=== PATIENT | male | born 1975 | race Caucasian/White ===

== ENCOUNTER 2018-10-05 06:35 | Inpatient (IN) | payer MEDICAID, OTHER ==
[2018-10-05 07:05] LABS: ADD MAN DIFF? NO
[2018-10-05 07:15] LABS: ABNORMAL IP MESSAGE 1; BASOPHILS % 0.2 % (0.0-2.0); EOSINOPHILS # 0.2 10^3/ul (0.0-0.5); EOSINOPHILS % 1.5 % (0.0-7.0); HEMATOCRIT 40.7 % (42.0-52.0); HEMOGLOBIN 12.9 g/dl (14.0-18.0); LYMPHOCYTES % 10.4 % (15.0-51.0); MEAN CORPUSCULAR HEMOGLOBIN 30.8 pg (29.0-33.0); MEAN CORPUSCULAR HGB CONC 31.7 g/dl (32.0-37.0); MEAN CORPUSCULAR VOLUME 97.1 fl (82.0-101.0); MEAN PLATELET VOLUME 10.5 fl (7.4-10.4); MONOCYTE # 1.4 10^3/ul (0.3-0.9); NEUTROPHIL # 6.2 10^3/ul (1.6-7.5); NEUTROPHILS % 62.3 % (39.0-77.0); PLATELET COUNT 166 10^3/UL (140-415); POSITIVE DIFF @See below; RED BLOOD COUNT 4.19 10^6/ul (4.70-6.10); RED CELL DISTRIBUTION WIDTH 12.3 % (11.5-14.5)
[2018-10-05 07:15] LABS: WHITE BLOOD COUNT 9.9 10^3/ul (4.8-10.8)
[2018-10-05] MEDS: SOD CHLORIDE 0.9% 1,000 ML IV ×2 (07:16→10:38)
[2018-10-05] MEDS: FLUMAZENIL 0.5 MG INJ IV (07:18)
[2018-10-05] MEDS: NALOXONE (0.4 MG/ML) INJ IV (07:19)
[2018-10-05 07:30] LABS: ALANINE AMINOTRANSFERASE 51 IU/L (13-69); ALBUMIN 3.8 g/dl (3.3-4.9); ALBUMIN/GLOBULIN RATIO 1.08; ALKALINE PHOSPHATASE 98 IU/L (42-121); ANION GAP 16 (5-13); ASPARTATE AMINO TRANSFERASE 61 IU/L (15-46); BILIRUBIN,INDIRECT 0.3 mg/dl (0-1.1); BILIRUBIN,TOTAL 0.3 mg/dl (0.2-1.3); BLOOD UREA NITROGEN 14 mg/dl (7-20); CARBON DIOXIDE 26 mmol/L (21-31); CHLORIDE 103 mmol/L (97-110); CREATININE 1.69 mg/dl (0.61-1.24); Estimated GFR 45 mL/min (>60); GLUCOSE 142 mg/dl (70-220); POTASSIUM 3.9 mmol/L (3.5-5.1); SODIUM 145 mmol/L (135-144); TOTAL PROTEIN 7.3 g/dl (6.1-8.1)
[2018-10-05 07:31] LABS: AMMONIA 26 umol/l (9-30)
[2018-10-05 07:34] LABS: INR 1.12; PROTIME 14.5 Sec (11.9-14.9); PT RATIO 1.1
[2018-10-05 07:35] LABS: PARTIAL THROMBOPLASTIN TIME 37.1 Sec (23.0-35.0)
[2018-10-05 07:42] LABS: TROPONIN-I 0.335 ng/ml (0.000-0.120)
[2018-10-05 07:49] LABS: ANISOCYTOSIS 1+ (0-0); BAND NEUTROPHILS #M 0.2 10^3/ul (0.0-0.6); BAND NEUTROPHILS % (M) 3 % (0-4); EOSINOPHILS % (M) 6 % (0-7); GIANT THROMBO% (M) 1 % (0-0); LYMPHOCYTES #M 1.3 10^3/ul (0.8-2.9); LYMPHOCYTES % (M) 14 % (15-51); MONOCYTE #M 0.5 10^3/ul (0.3-0.9); MONOCYTES % (M) 6 % (0-11); MYELOCYTES #M 0.4 10^3/ul (0.0-0.0); MYELOCYTES % (M) 5 % (0-0); PLATELET ESTIMATE NORMAL; POLYCHROMASIA 1+ (0-0); PROMYELOCYTES #M 0.2 10^3/ul (0-0); PROMYELOCYTES % (M) 3 % (0-0); REACTIVE LYMPHOCYTES% (M) 1 % (0-0); SEG NEUT #M 6.2 10^3/ul (1.6-7.5); SEGMENTED NEUTROPHILS (M) % 62 % (39-77); SMUDGE%M 1 % (0-0)
[2018-10-05] MEDS: SODIUM CHLORIDE 0.9% 1L BAG IV* (08:11)
[2018-10-05] MEDS: ENOXAPARIN 80 MG/0.8 ML SYG SC ×2 (08:12→21:33)
[2018-10-05] MEDS: NALOXONE 2 MG SYG IV (08:21)
[2018-10-05] MEDS: CEFEPIME 2GM/50 ML (PMX) 50 ML IVPB (08:21)
[2018-10-05 08:33] LABS: ADD UMIC YES; UR AMORPHOUS CRYSTAL FEW /HPF (NONE SEEN); UR ASCORBIC ACID NEGATIVE (NEGATIVE); UR BACTERIA FEW /HPF (NONE SEEN); UR BILIRUBIN (Dip) NEGATIVE (NEGATIVE); UR BLOOD (Dip) 1+ mg/dL (NEGATIVE); UR CLARITY SLIGHTLY CLOUDY (CLEAR); UR COLOR YELLOW (YELLOW); UR GLUCOSE (Dip) 1+ mg/dL (NEGATIVE); UR KETONES (Dip) NEGATIVE (NEGATIVE); UR LEUKOCYTE ESTERASE (Dip) NEGATIVE Leu/ul (NEGATIVE); UR NITRITE (Dip) NEGATIVE (NEGATIVE); UR RBC 5 /HPF (0-5); UR SPECIFIC GRAVITY (Dip) 1.009 (1.003-1.030); UR TOTAL PROTEIN (Dip) 2+ mg/dl (NEGATIVE); UR UROBILINOGEN (Dip) NEGATIVE (NEGATIVE); UR WBC 6 /HPF (0-5)
[2018-10-05] MEDS: VANCOMYCIN 1 GM (PMX) 250 ML IVPB (08:52)
[2018-10-05] MEDS ORDERED: ONDANSETRON 4 MG INJ IV (10:30)
[2018-10-05] MEDS ORDERED: ACETAMINOPHEN 325 MG TAB PO (10:30)
[2018-10-05 11:56] LABS: LACTIC ACID 0.9 mmol/L (0.5-2.0)
[2018-10-05] MEDS ORDERED: NITROGLYCERIN (SL) 0.4 MG TAB SL (12:00)
[2018-10-05] MEDS ORDERED: BISACODYL 10 MG SUPP PR (12:00)
[2018-10-05] MEDS ORDERED: VANCOMYCIN IV PER PHARMACY XX (12:00)
[2018-10-05] MEDS ORDERED: NACL 0.9% 3 ML SYG IV (12:00)
[2018-10-05] MEDS ORDERED: DOCUSATE SODIUM 100 MG CAP PO (12:00)
[2018-10-05] MEDS ORDERED: hydrALAzine 20 MG INJ IV (12:00)
[2018-10-05] MEDS: SOD CHLORIDE 0.45% 1,000 ML IV (13:22)
[2018-10-05] MEDS: PIPER-TAZO 3.375 GM IV (PMX) 100 ML IVPB ×2 (13:23→21:29)
[2018-10-05 13:27] LABS: VALPROATE 32 ug/ml (50-100)
[2018-10-05] MEDS: CHLORHEXIDINE GLUCONATE 15 ML UD CUP MM ×2 (13:48→23:46)
[2018-10-05 13:51] LABS: CREATINE KINASE 201 IU/L (23-200)
[2018-10-05 14:00] LABS: CK INDEX 7.9
[2018-10-05 17:30] LABS: LACTIC ACID 0.9 mmol/L (0.5-2.0)
[2018-10-05 17:31] LABS: CREATINE KINASE 313 IU/L (23-200)
[2018-10-05] MEDS: VANCOMYCIN 750 MG (PMX) 250 ML IVPB (17:41)
[2018-10-05 17:43] LABS: CK INDEX 7.5
[2018-10-05] MEDS ORDERED: NON-FORMULARY/PATIENT OWN MED (Amino Acids/Protein Hydrolys (Pro-Stat Liquid) 30 ML) GTB (21:00)
[2018-10-05] MEDS ORDERED: ATORVASTATIN 80 MG TAB PO (21:00)
[2018-10-05] MEDS ORDERED: HEPARIN 5,000 UNIT/0.5 ML VIAL SC (21:00)
[2018-10-05] MEDS: ATORVASTATIN 40 MG TAB GTB (21:30)
[2018-10-05] MEDS: VALPROIC ACID LIQUID CUP 250 MG/5 ML CUP GTB (21:32)
[2018-10-05] MEDS: METOPROLOL 25 MG TAB PO (21:32)
[2018-10-05 21:33] LABS: CREATINE KINASE 294 IU/L (23-200)
[2018-10-05 21:47] LABS: CK INDEX 7.4
[2018-10-05 23:16] LABS: CREATININE,URINE RANDOM 113.69 mg/dl (20-370)
[2018-10-05 23:27] LABS: SODIUM,URINE RANDOM 88 mmol/L (30-90)
[2018-10-05] MEDS: LORAZEPAM 2 MG INJ IV (23:46)
[2018-10-06] MEDS: SOD CHLORIDE 0.45% 1,000 ML IV ×3 (02:13→23:30)
[2018-10-06] MEDS: PIPER-TAZO 3.375 GM IV (PMX) 100 ML IVPB ×4 (02:16→17:09)
[2018-10-06 06:07] LABS: ADD MAN DIFF? NO
[2018-10-06 06:09] LABS: ABNORMAL IP MESSAGE 1; BASOPHIL # 0.1 10^3/ul (0.0-0.1); BASOPHILS % 0.5 % (0.0-2.0); EOSINOPHILS # 0.3 10^3/ul (0.0-0.5); EOSINOPHILS % 2.4 % (0.0-7.0); HEMATOCRIT 35.4 % (42.0-52.0); HEMOGLOBIN 11.5 g/dl (14.0-18.0); LYMPHOCYTES # 1.3 10^3/ul (0.8-2.9); LYMPHOCYTES % 10.6 % (15.0-51.0); MEAN CORPUSCULAR HEMOGLOBIN 30.9 pg (29.0-33.0); MEAN CORPUSCULAR HGB CONC 32.5 g/dl (32.0-37.0); MEAN CORPUSCULAR VOLUME 95.2 fl (82.0-101.0); MEAN PLATELET VOLUME 10.1 fl (7.4-10.4); MONOCYTE # 1.9 10^3/ul (0.3-0.9); MONOCYTES % 15.5 % (0.0-11.0); NEUTROPHIL # 8.5 10^3/ul (1.6-7.5); NEUTROPHILS % 69.1 % (39.0-77.0); PLATELET COUNT 152 10^3/UL (140-415); POSITIVE DIFF @See below; RED BLOOD COUNT 3.72 10^6/ul (4.70-6.10); RED CELL DISTRIBUTION WIDTH 12.2 % (11.5-14.5)
[2018-10-06 06:09] LABS: WHITE BLOOD COUNT 12.3 10^3/ul (4.8-10.8)
[2018-10-06] MEDS: VANCOMYCIN 750 MG (PMX) 250 ML IVPB ×2 (06:16→17:52)
[2018-10-06 06:34] LABS: CHOLESTEROL 61 mg/dl (100-200)
[2018-10-06 06:34] LABS: CHOL/HDL RATIO 3.2 RATIO; HDL CHOLESTEROL 19 mg/dl (27-67); LDL CHOLESTEROL,CALCULATED 16 mg/dl; TRIGLYCERIDES 129 mg/dl (0-149)
[2018-10-06 06:36] LABS: LACTIC ACID 1.1 mmol/L (0.5-2.0)
[2018-10-06 06:39] LABS: ANION GAP 7 (5-13); BLOOD UREA NITROGEN 10 mg/dl (7-20); CALCIUM 8.1 mg/dl (8.4-10.2); CARBON DIOXIDE 27 mmol/L (21-31); CHLORIDE 110 mmol/L (97-110); CREATINE KINASE 190 IU/L (23-200); CREATININE 0.77 mg/dl (0.61-1.24); Estimated GFR > 60 mL/min (>60); GLUCOSE 98 mg/dl (70-220); MAGNESIUM 1.7 mg/dl (1.7-2.5); PHOSPHORUS 4.3 mg/dl (2.5-4.9); POTASSIUM 3.7 mmol/L (3.5-5.1); SODIUM 144 mmol/L (135-144)
[2018-10-06 06:45] LABS: CK INDEX 5.4
[2018-10-06 07:03] LABS: THYROID STIMULATING HORMONE 0.766 MIU/L (0.465-4.680)
[2018-10-06 07:03] LABS: HEMOGLOBIN A1C 5.3 % (0-5.9)
[2018-10-06] MEDS: LORAZEPAM 2 MG INJ IV ×3 (07:18→21:35)
[2018-10-06] MEDS: VALPROIC ACID LIQUID CUP 250 MG/5 ML CUP GTB ×2 (08:09→21:16)
[2018-10-06] MEDS: FAMOTIDINE 20 MG INJ IV ×2 (08:09→21:18)
[2018-10-06] MEDS: MULTIVITAMINS/MINERALS TAB PO (08:09)
[2018-10-06] MEDS: LACTOBACILLUS RHAMNOSUS CAP PO (08:10)
[2018-10-06] MEDS: ZINC SULFATE 220 MG CAP GTB (08:10)
[2018-10-06] MEDS: METOPROLOL 25 MG TAB PO ×2 (08:10→21:21)
[2018-10-06] MEDS: ASCORBIC ACID 500 MG TAB GTB (08:10)
[2018-10-06] MEDS: ASPIRIN (EC) 325 MG TAB PO (08:10)
[2018-10-06] MEDS: ENOXAPARIN 80 MG/0.8 ML SYG SC (08:25)
[2018-10-06] MEDS ORDERED: NON-FORMULARY/PATIENT OWN MED (Cran/Vitc/Mannose/Inulin/Brom (Uti-Stat Liquid) 30 ML) GTB (09:00)
[2018-10-06] MEDS: GABAPENTIN 300 MG CAP GTB ×2 (12:45→21:17)
[2018-10-06] MEDS: CHLORHEXIDINE GLUCONATE 15 ML UD CUP MM (12:45)
[2018-10-06] MEDS ORDERED: RISPERIDONE 1 MG TAB GTB (13:00)
[2018-10-06] MEDS: RISPERIDONE 2 MG TAB GTB (13:45)
[2018-10-06] MEDS: ATORVASTATIN 40 MG TAB GTB (21:17)
[2018-10-07] MEDS: PIPER-TAZO 3.375 GM IV (PMX) 100 ML IVPB ×2 (00:35→05:24)
[2018-10-07] MEDS: CHLORHEXIDINE GLUCONATE 15 ML UD CUP MM ×3 (00:35→23:52)
[2018-10-07] MEDS: LORAZEPAM 2 MG INJ IV ×5 (03:26→22:35)
[2018-10-07] MEDS: HALOPERIDOL 5 MG INJ IM (04:08)
[2018-10-07 06:12] LABS: WHITE BLOOD COUNT 11.3 10^3/ul (4.8-10.8)
[2018-10-07 06:12] LABS: ABNORMAL IP MESSAGE 1; HEMATOCRIT 32.1 % (42.0-52.0); HEMOGLOBIN 11.1 g/dl (14.0-18.0); MEAN CORPUSCULAR HEMOGLOBIN 31.7 pg (29.0-33.0); MEAN CORPUSCULAR HGB CONC 34.6 g/dl (32.0-37.0); MEAN CORPUSCULAR VOLUME 91.7 fl (82.0-101.0); MEAN PLATELET VOLUME 9.8 fl (7.4-10.4); PLATELET COUNT 171 10^3/UL (140-415); POSITIVE DIFF @See below
[2018-10-07 06:17] LABS: ADD MAN DIFF? YES
[2018-10-07 06:30] LABS: ANION GAP 6 (5-13); BLOOD UREA NITROGEN 5 mg/dl (7-20); CARBON DIOXIDE 31 mmol/L (21-31); CHLORIDE 104 mmol/L (97-110); CREATININE 0.55 mg/dl (0.61-1.24); Estimated GFR > 60 mL/min (>60); GLUCOSE 82 mg/dl (70-220); POTASSIUM 3.1 mmol/L (3.5-5.1); SODIUM 141 mmol/L (135-144)
[2018-10-07] MEDS: VANCOMYCIN 750 MG (PMX) 250 ML IVPB ×2 (08:59→17:49)
[2018-10-07] MEDS: VALPROIC ACID LIQUID CUP 250 MG/5 ML CUP GTB ×2 (08:59→20:51)
[2018-10-07] MEDS: RISPERIDONE 2 MG TAB GTB (09:00)
[2018-10-07] MEDS: FAMOTIDINE 20 MG INJ IV ×2 (09:00→20:47)
[2018-10-07] MEDS: GABAPENTIN 300 MG CAP GTB ×2 (09:00→20:51)
[2018-10-07] MEDS: METOPROLOL 25 MG TAB PO ×2 (09:00→20:52)
[2018-10-07] MEDS: MULTIVITAMINS/MINERALS TAB PO (09:00)
[2018-10-07] MEDS: ASCORBIC ACID 500 MG TAB GTB (09:00)
[2018-10-07] MEDS: LACTOBACILLUS RHAMNOSUS CAP PO (09:06)
[2018-10-07] MEDS: ASPIRIN (EC) 325 MG TAB PO (09:06)
[2018-10-07] MEDS: ZINC SULFATE 220 MG CAP GTB (09:06)
[2018-10-07] MEDS: ENOXAPARIN 80 MG/0.8 ML SYG SC (09:07)
[2018-10-07 09:29] LABS: BAND NEUTROPHILS #M 0.9 10^3/ul (0.0-0.6); BAND NEUTROPHILS % (M) 8 % (0-4); BURR CELLS 2+ (0-0); EOSINOPHILS % (M) 4 % (0-7); LYMPHOCYTES #M 0.6 10^3/ul (0.8-2.9); LYMPHOCYTES % (M) 6 % (15-51); MONOCYTES % (M) 9 % (0-11); MYELOCYTES #M 0.2 10^3/ul (0.0-0.0); MYELOCYTES % (M) 2 % (0-0); PLATELET ESTIMATE NORMAL; POIKILOCYTOSIS 1+ (0-0); REACTIVE LYMPHOCYTES #M 0.2 10^3/ul (0.0-0.0); REACTIVE LYMPHOCYTES% (M) 2 % (0-0); SEG NEUT #M 7.9 10^3/ul (1.6-7.5); SEGMENTED NEUTROPHILS (M) % 69 % (39-77); SMUDGE%M 4 % (0-0); TARGET CELLS 1+ (0-0)
[2018-10-07] MEDS: POTASSIUM CHLORIDE 100 ML IVPB ×2 (11:24→13:29)
[2018-10-07] MEDS: HALOPERIDOL 5 MG INJ IV ×2 (11:24→20:47)
[2018-10-07] MEDS: MUPIROCIN 2% 22 GM OINT TOP ×2 (12:52→20:52)
[2018-10-07 16:37] LABS: CREATINE KINASE 110 IU/L (23-200)
[2018-10-07 16:47] LABS: CK INDEX 1.2; CK-MB 1.31 ng/ml (0.0-2.4)
[2018-10-07] MEDS: SOD CHLORIDE 0.45% 1,000 ML IV (17:00)
[2018-10-07] MEDS: ATORVASTATIN 40 MG TAB GTB (20:51)
[2018-10-07] MEDS: ALBUTEROL/IPRATROPIUM (NEB) 3 ML AMP HHN (22:12)
[2018-10-08] MEDS: VANCOMYCIN 750 MG (PMX) 250 ML IVPB ×3 (00:51→17:53)
[2018-10-08] MEDS: LORAZEPAM 2 MG INJ IV (04:21)
[2018-10-08] MEDS: ALBUTEROL/IPRATROPIUM (NEB) 3 ML AMP HHN (05:07)
[2018-10-08 06:18] LABS: ADD MAN DIFF? NO
[2018-10-08] MEDS: SOD CHLORIDE 0.45% 1,000 ML IV (06:20)
[2018-10-08 06:22] LABS: WHITE BLOOD COUNT 8.3 10^3/ul (4.8-10.8)
[2018-10-08 06:23] LABS: BASOPHIL # 0.1 10^3/ul (0.0-0.1); BASOPHILS % 0.8 % (0.0-2.0); EOSINOPHILS # 0.5 10^3/ul (0.0-0.5); EOSINOPHILS % 5.4 % (0.0-7.0); HEMATOCRIT 33.8 % (42.0-52.0); HEMOGLOBIN 11.5 g/dl (14.0-18.0); LYMPHOCYTES % 24.4 % (15.0-51.0); MEAN CORPUSCULAR HEMOGLOBIN 30.9 pg (29.0-33.0); MEAN CORPUSCULAR VOLUME 90.9 fl (82.0-101.0); MEAN PLATELET VOLUME 9.9 fl (7.4-10.4); MONOCYTE # 1.1 10^3/ul (0.3-0.9); MONOCYTES % 13.4 % (0.0-11.0); NEUTROPHIL # 4.4 10^3/ul (1.6-7.5); NEUTROPHILS % 53.5 % (39.0-77.0); PLATELET COUNT 194 10^3/UL (140-415); RED BLOOD COUNT 3.72 10^6/ul (4.70-6.10); RED CELL DISTRIBUTION WIDTH 11.9 % (11.5-14.5)
[2018-10-08 07:03] LABS: ANION GAP 9 (5-13); BLOOD UREA NITROGEN 3 mg/dl (7-20); CALCIUM 8.2 mg/dl (8.4-10.2); CARBON DIOXIDE 28 mmol/L (21-31); CHLORIDE 106 mmol/L (97-110); CREATININE 0.55 mg/dl (0.61-1.24); Estimated GFR > 60 mL/min (>60); GLUCOSE 73 mg/dl (70-220); POTASSIUM 3.3 mmol/L (3.5-5.1); SODIUM 143 mmol/L (135-144)
[2018-10-08] MEDS: HALOPERIDOL 5 MG INJ IV ×2 (07:26→08:51)
[2018-10-08] MEDS ORDERED: HALOPERIDOL 5 MG INJ IV (08:30)
[2018-10-08] MEDS: VALPROIC ACID LIQUID CUP 250 MG/5 ML CUP GTB ×2 (08:46→20:28)
[2018-10-08] MEDS: POTASSIUM CHLORIDE 20 MEQ POWDER FOR ORAL SOLN GTB (08:47)
[2018-10-08] MEDS: ZINC SULFATE 220 MG CAP GTB (08:47)
[2018-10-08] MEDS: ASPIRIN (EC) 325 MG TAB PO (08:48)
[2018-10-08] MEDS: RISPERIDONE 2 MG TAB GTB (08:48)
[2018-10-08] MEDS: LACTOBACILLUS RHAMNOSUS CAP PO (08:48)
[2018-10-08] MEDS: MULTIVITAMINS/MINERALS TAB PO (08:50)
[2018-10-08] MEDS: GABAPENTIN 300 MG CAP GTB ×2 (08:50→20:29)
[2018-10-08] MEDS: ASCORBIC ACID 500 MG TAB GTB (08:50)
[2018-10-08] MEDS: FAMOTIDINE 20 MG INJ IV ×2 (08:51→20:29)
[2018-10-08] MEDS: METOPROLOL 25 MG TAB PO ×2 (08:51→20:28)
[2018-10-08] MEDS: ENOXAPARIN 80 MG/0.8 ML SYG SC (09:18)
[2018-10-08] MEDS: MUPIROCIN 2% 22 GM OINT TOP ×2 (09:19→20:29)
[2018-10-08] MEDS: CHLORHEXIDINE GLUCONATE 15 ML UD CUP MM (12:17)
[2018-10-08 15:15] LABS: D-DIMER 931.28 ng/ml (<460)
[2018-10-08 15:50] LABS: HIV 1&2 ANTIBODY NEGATIVE (NEGATIVE)
[2018-10-08 16:25] LABS: ERYTHROCYTE SEDIMENTATION RATE 57 mm/Hr (0-15)
[2018-10-08] MEDS: DIPHENHYDRAMINE 50 MG INJ IV (17:53)
[2018-10-08] MEDS: ATORVASTATIN 40 MG TAB GTB (20:27)
[2018-10-08] MEDS: QUETIAPINE 25 MG TAB GTB (20:28)
[2018-10-09] MEDS: CHLORHEXIDINE GLUCONATE 15 ML UD CUP MM ×2 (00:50→10:03)
[2018-10-09] MEDS: VANCOMYCIN 750 MG (PMX) 250 ML IVPB (00:50)
[2018-10-09] MEDS: DIPHENHYDRAMINE 50 MG INJ IV ×3 (00:50→17:46)
[2018-10-09 01:53] LABS: VANCOMYCIN,TROUGH 9.5 ug/ml (10.0-20.0)
[2018-10-09] MEDS: QUETIAPINE 25 MG TAB GTB ×3 (04:28→22:28)
[2018-10-09 07:52] LABS: ADD MAN DIFF? NO
[2018-10-09 07:54] LABS: BASOPHIL # 0.1 10^3/ul (0.0-0.1); BASOPHILS % 0.7 % (0.0-2.0); EOSINOPHILS # 0.3 10^3/ul (0.0-0.5); EOSINOPHILS % 4.3 % (0.0-7.0); HEMATOCRIT 36.4 % (42.0-52.0); HEMOGLOBIN 12.4 g/dl (14.0-18.0); LYMPHOCYTES # 1.8 10^3/ul (0.8-2.9); LYMPHOCYTES % 24.9 % (15.0-51.0); MEAN CORPUSCULAR HEMOGLOBIN 30.8 pg (29.0-33.0); MEAN CORPUSCULAR HGB CONC 34.1 g/dl (32.0-37.0); MEAN CORPUSCULAR VOLUME 90.5 fl (82.0-101.0); MEAN PLATELET VOLUME 9.3 fl (7.4-10.4); MONOCYTE # 0.9 10^3/ul (0.3-0.9); NEUTROPHILS % 56.4 % (39.0-77.0); PLATELET COUNT 247 10^3/UL (140-415); RED BLOOD COUNT 4.02 10^6/ul (4.70-6.10)
[2018-10-09 07:54] LABS: WHITE BLOOD COUNT 7.2 10^3/ul (4.8-10.8)
[2018-10-09 08:25] LABS: ANION GAP 6 (5-13); CALCIUM 8.7 mg/dl (8.4-10.2); CARBON DIOXIDE 31 mmol/L (21-31); CHLORIDE 107 mmol/L (97-110); CREATININE 0.57 mg/dl (0.61-1.24); Estimated GFR > 60 mL/min (>60); GLUCOSE 93 mg/dl (70-220); POTASSIUM 3.5 mmol/L (3.5-5.1); SODIUM 144 mmol/L (135-144)
[2018-10-09 08:26] LABS: BLOOD UREA NITROGEN < 2 mg/dl (7-20)
[2018-10-09] MEDS: MULTIVITAMINS/MINERALS TAB PO (10:01)
[2018-10-09] MEDS: ZINC SULFATE 220 MG CAP GTB (10:01)
[2018-10-09] MEDS: FAMOTIDINE 20 MG TAB GTB ×2 (10:02→22:19)
[2018-10-09] MEDS: HYDROCODONE/APAP (5/325) TAB PO ×2 (10:02→17:46)
[2018-10-09] MEDS: LACTOBACILLUS RHAMNOSUS CAP PO (10:02)
[2018-10-09] MEDS: ASCORBIC ACID 500 MG TAB GTB (10:02)
[2018-10-09] MEDS: ASPIRIN (EC) 325 MG TAB PO (10:02)
[2018-10-09] MEDS: RISPERIDONE 2 MG TAB GTB (10:02)
[2018-10-09] MEDS: GABAPENTIN 300 MG CAP GTB ×2 (10:02→21:00)
[2018-10-09] MEDS: ONDANSETRON 4 MG INJ IV ×2 (10:02→17:46)
[2018-10-09] MEDS: MUPIROCIN 2% 22 GM OINT TOP ×2 (10:03→21:00)
[2018-10-09] MEDS: METOPROLOL 25 MG TAB PO ×2 (10:03→22:19)
[2018-10-09] MEDS: VALPROIC ACID LIQUID CUP 250 MG/5 ML CUP GTB ×2 (10:03→22:17)
[2018-10-09] MEDS: ENOXAPARIN 80 MG/0.8 ML SYG SC (10:05)
[2018-10-09] MEDS: VANCOMYCIN 1 GM 250 ML IVPB ×2 (10:09→17:25)
[2018-10-09 13:08] LABS: TROPONIN-I 0.557 ng/ml (0.000-0.120)
[2018-10-09] MEDS: LORAZEPAM 2 MG INJ IV (13:30)
[2018-10-09] MEDS: IOHEXOL 300MG/ML 150 ML BTL (14:07)
[2018-10-09] MEDS: IOHEXOL 100 ML (14:07)
[2018-10-09] MEDS: SOD CHLORIDE 0.9% 100 ML (14:07)
[2018-10-09 16:25] LABS: RAPID PLASMA REAGIN NONREACTIVE (NR)
[2018-10-09] MEDS: MAGNESIUM HYDROXIDE 30ML CUP PO (17:47)
[2018-10-09] MEDS: ATORVASTATIN 40 MG TAB GTB (22:18)
[2018-10-10] MEDS: CHLORHEXIDINE GLUCONATE 15 ML UD CUP MM ×2 (04:01→12:21)
[2018-10-10] MEDS: VANCOMYCIN 1 GM 250 ML IVPB ×3 (04:02→17:35)
[2018-10-10] MEDS: DIPHENHYDRAMINE 50 MG INJ IV ×3 (04:57→19:55)
[2018-10-10 05:45] LABS: ADD MAN DIFF? NO
[2018-10-10 06:00] LABS: BASOPHIL # 0.1 10^3/ul (0.0-0.1); BASOPHILS % 0.8 % (0.0-2.0); EOSINOPHILS # 0.6 10^3/ul (0.0-0.5); EOSINOPHILS % 7.4 % (0.0-7.0); HEMATOCRIT 35.9 % (42.0-52.0); LYMPHOCYTES # 2.3 10^3/ul (0.8-2.9); LYMPHOCYTES % 30.1 % (15.0-51.0); MEAN CORPUSCULAR HEMOGLOBIN 30.8 pg (29.0-33.0); MEAN CORPUSCULAR HGB CONC 33.4 g/dl (32.0-37.0); MEAN CORPUSCULAR VOLUME 92.3 fl (82.0-101.0); MEAN PLATELET VOLUME 9.3 fl (7.4-10.4); MONOCYTE # 0.9 10^3/ul (0.3-0.9); NEUTROPHIL # 3.6 10^3/ul (1.6-7.5); NEUTROPHILS % 47.6 % (39.0-77.0); PLATELET COUNT 245 10^3/UL (140-415); RED BLOOD COUNT 3.89 10^6/ul (4.70-6.10); RED CELL DISTRIBUTION WIDTH 12.4 % (11.5-14.5)
[2018-10-10 06:00] LABS: WHITE BLOOD COUNT 7.6 10^3/ul (4.8-10.8)
[2018-10-10 06:35] LABS: ANION GAP 7 (5-13); BLOOD UREA NITROGEN 5 mg/dl (7-20); CALCIUM 8.4 mg/dl (8.4-10.2); CARBON DIOXIDE 32 mmol/L (21-31); CHLORIDE 106 mmol/L (97-110); CREATININE 0.65 mg/dl (0.61-1.24); Estimated GFR > 60 mL/min (>60); GLUCOSE 103 mg/dl (70-220); POTASSIUM 3.4 mmol/L (3.5-5.1); SODIUM 145 mmol/L (135-144)
[2018-10-10] MEDS: FAMOTIDINE 20 MG TAB GTB ×2 (08:35→20:20)
[2018-10-10] MEDS: MULTIVITAMINS/MINERALS TAB PO (08:35)
[2018-10-10] MEDS: RISPERIDONE 2 MG TAB GTB (08:35)
[2018-10-10] MEDS: VALPROIC ACID LIQUID CUP 250 MG/5 ML CUP GTB ×2 (08:36→20:19)
[2018-10-10] MEDS: LACTOBACILLUS RHAMNOSUS CAP PO (08:36)
[2018-10-10] MEDS: ZINC SULFATE 220 MG CAP GTB (08:36)
[2018-10-10] MEDS: ASCORBIC ACID 500 MG TAB GTB (08:36)
[2018-10-10] MEDS: ASPIRIN (EC) 325 MG TAB PO (08:36)
[2018-10-10] MEDS: GABAPENTIN 300 MG CAP GTB ×2 (08:36→20:19)
[2018-10-10] MEDS: POTASSIUM CHLORIDE 20 MEQ POWDER FOR ORAL SOLN GTB ×2 (08:37→15:35)
[2018-10-10] MEDS: MUPIROCIN 2% 22 GM OINT TOP ×2 (08:37→20:21)
[2018-10-10] MEDS: HYDROCODONE/APAP (5/325) TAB PO (08:38)
[2018-10-10] MEDS: ENOXAPARIN 80 MG/0.8 ML SYG SC (08:55)
[2018-10-10] MEDS: METOPROLOL 25 MG TAB PO ×2 (08:56→20:20)
[2018-10-10 16:26] LABS: CREATININE, RANDOM URINE 109 mg/dL (20-320); MICROALBUMIN 7.2 mg/dL; MICROALBUMIN/CREATININE RATIO 66 (<30)
[2018-10-10 16:44] LABS: ADD UMIC YES; UR ASCORBIC ACID 40 mg/dL (NEGATIVE); UR BACTERIA FEW /HPF (NONE SEEN); UR BILIRUBIN (Dip) NEGATIVE (NEGATIVE); UR BLOOD (Dip) 3+ mg/dL (NEGATIVE); UR CLARITY CLOUDY (CLEAR); UR COLOR AMBER (YELLOW); UR GLUCOSE (Dip) NEGATIVE (NEGATIVE); UR KETONES (Dip) NEGATIVE (NEGATIVE); UR LEUKOCYTE ESTERASE (Dip) NEGATIVE Leu/ul (NEGATIVE); UR NITRITE (Dip) NEGATIVE (NEGATIVE); UR RBC > 182 /HPF (0-5); UR SPECIFIC GRAVITY (Dip) 1.025 (1.003-1.030); UR TOTAL PROTEIN (Dip) 2+ mg/dl (NEGATIVE); UR UROBILINOGEN (Dip) NEGATIVE (NEGATIVE); UR WBC 83 /HPF (0-5)
[2018-10-10 17:09] LABS: VANCOMYCIN,TROUGH 15.8 ug/ml (10.0-20.0)
[2018-10-10 18:46] LABS: HOMOCYSTEINE - CARDIOVASCULAR 4.6 umol/L (<11.4)
[2018-10-10] MEDS: LORAZEPAM 2 MG INJ IV (20:07)
[2018-10-10] MEDS: ATORVASTATIN 40 MG TAB GTB (20:19)
[2018-10-11] MEDS: HYDROCODONE/APAP (5/325) TAB PO (00:29)
[2018-10-11] MEDS: VANCOMYCIN 1 GM 250 ML IVPB ×3 (00:31→16:34)
[2018-10-11] MEDS: CHLORHEXIDINE GLUCONATE 15 ML UD CUP MM ×2 (00:32→12:30)
[2018-10-11] MEDS: QUETIAPINE 25 MG TAB GTB ×2 (01:50→23:15)
[2018-10-11 06:12] LABS: ADD MAN DIFF? NO
[2018-10-11 06:23] LABS: WHITE BLOOD COUNT 7.1 10^3/ul (4.8-10.8)
[2018-10-11 06:23] LABS: BASOPHIL # 0.1 10^3/ul (0.0-0.1); BASOPHILS % 0.8 % (0.0-2.0); EOSINOPHILS # 0.5 10^3/ul (0.0-0.5); EOSINOPHILS % 6.6 % (0.0-7.0); HEMOGLOBIN 11.7 g/dl (14.0-18.0); LYMPHOCYTES # 1.6 10^3/ul (0.8-2.9); LYMPHOCYTES % 22.9 % (15.0-51.0); MEAN CORPUSCULAR HEMOGLOBIN 31.5 pg (29.0-33.0); MEAN CORPUSCULAR HGB CONC 33.4 g/dl (32.0-37.0); MEAN CORPUSCULAR VOLUME 94.3 fl (82.0-101.0); MEAN PLATELET VOLUME 9.2 fl (7.4-10.4); MONOCYTE # 0.8 10^3/ul (0.3-0.9); MONOCYTES % 11.7 % (0.0-11.0); NEUTROPHILS % 56.2 % (39.0-77.0); PLATELET COUNT 245 10^3/UL (140-415); RED BLOOD COUNT 3.71 10^6/ul (4.70-6.10); RED CELL DISTRIBUTION WIDTH 12.3 % (11.5-14.5)
[2018-10-11] MEDS: DIPHENHYDRAMINE 50 MG INJ IV (06:35)
[2018-10-11 06:43] LABS: ANION GAP 4 (5-13); BLOOD UREA NITROGEN 5 mg/dl (7-20); CALCIUM 8.4 mg/dl (8.4-10.2); CARBON DIOXIDE 35 mmol/L (21-31); CHLORIDE 106 mmol/L (97-110); CREATININE 0.62 mg/dl (0.61-1.24); Estimated GFR > 60 mL/min (>60); GLUCOSE 82 mg/dl (70-220); POTASSIUM 3.9 mmol/L (3.5-5.1); SODIUM 145 mmol/L (135-144)
[2018-10-11 06:48] LABS: PHOSPHORUS 5.2 mg/dl (2.5-4.9)
[2018-10-11 06:48] LABS: MAGNESIUM 2.1 mg/dl (1.7-2.5)
[2018-10-11] MEDS: HALOPERIDOL 5 MG INJ IM (07:05)
[2018-10-11] MEDS: GABAPENTIN 300 MG CAP GTB ×2 (09:06→23:14)
[2018-10-11] MEDS: VALPROIC ACID LIQUID CUP 250 MG/5 ML CUP GTB ×2 (09:06→23:12)
[2018-10-11] MEDS: RISPERIDONE 2 MG TAB GTB (09:07)
[2018-10-11] MEDS: ASCORBIC ACID 500 MG TAB GTB (09:07)
[2018-10-11] MEDS: ZINC SULFATE 220 MG CAP GTB (09:07)
[2018-10-11] MEDS: LACTOBACILLUS RHAMNOSUS CAP PO (09:07)
[2018-10-11] MEDS: LORAZEPAM 2 MG INJ IV (09:07)
[2018-10-11] MEDS: METOPROLOL 25 MG TAB PO ×2 (09:07→21:00)
[2018-10-11] MEDS: MULTIVITAMINS/MINERALS TAB PO (09:07)
[2018-10-11] MEDS: FAMOTIDINE 20 MG TAB GTB ×2 (09:07→21:00)
[2018-10-11] MEDS: ASPIRIN (EC) 325 MG TAB PO (09:08)
[2018-10-11] MEDS: MUPIROCIN 2% 22 GM OINT TOP ×2 (09:09→21:00)
[2018-10-11] MEDS: ENOXAPARIN 80 MG/0.8 ML SYG SC (09:28)
[2018-10-11 15:56] LABS: FACTOR VIII ACTIVITY 116 % normal (50-180)
[2018-10-11 19:06] LABS: ANTI-THROMBIN III 21 mg/dL (19-30)
[2018-10-11] MEDS: ATORVASTATIN 40 MG TAB GTB (23:13)
[2018-10-12] MEDS: DIPHENHYDRAMINE 50 MG INJ IV ×2 (01:22→10:17)
[2018-10-12] MEDS: VANCOMYCIN 1 GM 250 ML IVPB ×2 (01:22→09:02)
[2018-10-12 06:07] LABS: ADD MAN DIFF? NO
[2018-10-12 06:16] LABS: WHITE BLOOD COUNT 12.8 10^3/ul (4.8-10.8)
[2018-10-12 06:16] LABS: BASOPHIL # 0.1 10^3/ul (0.0-0.1); BASOPHILS % 0.5 % (0.0-2.0); EOSINOPHILS # 0.3 10^3/ul (0.0-0.5); EOSINOPHILS % 2.4 % (0.0-7.0); HEMATOCRIT 38.8 % (42.0-52.0); HEMOGLOBIN 12.8 g/dl (14.0-18.0); LYMPHOCYTES # 1.5 10^3/ul (0.8-2.9); LYMPHOCYTES % 11.5 % (15.0-51.0); MEAN CORPUSCULAR HEMOGLOBIN 31.1 pg (29.0-33.0); MEAN CORPUSCULAR VOLUME 94.2 fl (82.0-101.0); MEAN PLATELET VOLUME 9.1 fl (7.4-10.4); MONOCYTE # 0.9 10^3/ul (0.3-0.9); MONOCYTES % 7.3 % (0.0-11.0); NEUTROPHIL # 9.8 10^3/ul (1.6-7.5); NEUTROPHILS % 76.8 % (39.0-77.0); PLATELET COUNT 257 10^3/UL (140-415); RED BLOOD COUNT 4.12 10^6/ul (4.70-6.10); RED CELL DISTRIBUTION WIDTH 12.7 % (11.5-14.5)
[2018-10-12 06:42] LABS: ANION GAP 7 (5-13); BLOOD UREA NITROGEN 5 mg/dl (7-20); CALCIUM 8.8 mg/dl (8.4-10.2); CARBON DIOXIDE 33 mmol/L (21-31); CHLORIDE 106 mmol/L (97-110); CREATININE 0.67 mg/dl (0.61-1.24); Estimated GFR > 60 mL/min (>60); GLUCOSE 83 mg/dl (70-220); POTASSIUM 3.9 mmol/L (3.5-5.1); SODIUM 146 mmol/L (135-144)
[2018-10-12] MEDS: ENOXAPARIN 80 MG/0.8 ML SYG SC (09:00)
[2018-10-12] MEDS: ASPIRIN (EC) 325 MG TAB PO (09:00)
[2018-10-12] MEDS: MULTIVITAMINS/MINERALS TAB PO (09:00)
[2018-10-12] MEDS: VALPROIC ACID LIQUID CUP 250 MG/5 ML CUP GTB ×2 (09:04→20:34)
[2018-10-12] MEDS: LACTOBACILLUS RHAMNOSUS CAP PO (09:05)
[2018-10-12] MEDS: ZINC SULFATE 220 MG CAP GTB (09:05)
[2018-10-12] MEDS: GABAPENTIN 300 MG CAP GTB ×2 (09:05→20:34)
[2018-10-12] MEDS: RISPERIDONE 2 MG TAB GTB (09:06)
[2018-10-12] MEDS: FAMOTIDINE 20 MG TAB GTB ×2 (09:06→20:34)
[2018-10-12] MEDS: ASCORBIC ACID 500 MG TAB GTB (09:06)
[2018-10-12] MEDS: METOPROLOL 25 MG TAB PO ×2 (09:06→20:34)
[2018-10-12] MEDS: MUPIROCIN 2% 22 GM OINT TOP ×2 (09:07→20:35)
[2018-10-12] MEDS: ACETAMINOPHEN 325 MG TAB PO (10:18)
[2018-10-12] MEDS: CHLORHEXIDINE GLUCONATE 15 ML UD CUP MM ×2 (12:23)
[2018-10-12] MEDS ORDERED: MIDAZOLAM 1 MG/ML 2 ML INJ (13:05)
[2018-10-12] MEDS ORDERED: FENTAnyl 50 MCG/ML VIAL (13:05)
[2018-10-12 16:56] LABS: VANCOMYCIN,TROUGH 21.6 ug/ml (10.0-20.0)
[2018-10-12] MEDS: ATORVASTATIN 40 MG TAB GTB (20:33)
[2018-10-12] MEDS: QUETIAPINE 25 MG TAB GTB (20:54)
[2018-10-12] MEDS ORDERED: VANCOMYCIN 750 MG (PMX) 250 ML IVPB (23:00)
[2018-10-12] MEDS: VANCOMYCIN 750 MG (PMX) 250 ML IVPB (23:24)
[2018-10-13] MEDS: CHLORHEXIDINE GLUCONATE 15 ML UD CUP MM ×2 (00:10→11:47)
[2018-10-13] MEDS: HYDROCODONE/APAP (5/325) TAB PO (03:28)
[2018-10-13] MEDS: VANCOMYCIN 750 MG (PMX) 250 ML IVPB ×2 (06:05→15:23)
[2018-10-13 06:24] LABS: ANION GAP 6 (5-13); BLOOD UREA NITROGEN 9 mg/dl (7-20); CALCIUM 8.7 mg/dl (8.4-10.2); CARBON DIOXIDE 30 mmol/L (21-31); CHLORIDE 106 mmol/L (97-110); CREATININE 0.61 mg/dl (0.61-1.24); Estimated GFR > 60 mL/min (>60); GLUCOSE 112 mg/dl (70-220); MAGNESIUM 2.1 mg/dl (1.7-2.5); PHOSPHORUS 5.8 mg/dl (2.5-4.9); POTASSIUM 3.9 mmol/L (3.5-5.1); SODIUM 142 mmol/L (135-144)
[2018-10-13] MEDS: LACTOBACILLUS RHAMNOSUS CAP PO (08:44)
[2018-10-13] MEDS: VALPROIC ACID LIQUID CUP 250 MG/5 ML CUP GTB ×2 (08:44→20:26)
[2018-10-13] MEDS: GABAPENTIN 300 MG CAP GTB ×2 (08:44→20:27)
[2018-10-13] MEDS: ZINC SULFATE 220 MG CAP GTB (08:44)
[2018-10-13] MEDS: ASCORBIC ACID 500 MG TAB GTB (08:44)
[2018-10-13] MEDS: RISPERIDONE 2 MG TAB GTB (08:45)
[2018-10-13] MEDS: ASPIRIN (EC) 325 MG TAB PO (08:45)
[2018-10-13] MEDS: METOPROLOL 25 MG TAB PO ×2 (08:45→20:28)
[2018-10-13] MEDS: MUPIROCIN 2% 22 GM OINT TOP ×2 (08:46→20:28)
[2018-10-13] MEDS: ENOXAPARIN 80 MG/0.8 ML SYG SC (08:52)
[2018-10-13 10:50] LABS: AADO2 Arterial 61.4 mmHg (7.0-24.0); Allen Test ACCEPTAB; Arterial Base Excess 2.8 mmol/L (-3.0-3); Arterial Blood Gas Oxygen Sat 97.4 mmHG (95.0-98.0); Arterial COHb 0.3 % (0.0-3.0); Arterial Fraction of Oxyhgb 96.8 % (93.0-99.0); Arterial HCO3 27.7 mmol/L (22.0-26.0); Arterial MetHb 0.3 % (0.0-1.5); Arterial pCO2 43.6 mmhg (35-45); Blood Gas PS 10; MODE VENT - CPAP; Site Right Radial
[2018-10-13] MEDS: MULTIVITAMINS/MINERALS TAB PO (11:47)
[2018-10-13] MEDS: FAMOTIDINE 20 MG TAB GTB ×2 (11:47→20:27)
[2018-10-13] MEDS: ATORVASTATIN 40 MG TAB GTB (20:27)
[2018-10-13] MEDS: QUETIAPINE 25 MG TAB GTB (20:27)
[2018-10-13] MEDS: HALOPERIDOL 5 MG INJ IM (21:00)
[2018-10-14] MEDS: CHLORHEXIDINE GLUCONATE 15 ML UD CUP MM ×2 (00:35→11:59)
[2018-10-14] MEDS: QUETIAPINE 25 MG TAB GTB ×2 (04:35→21:21)
[2018-10-14] MEDS: HYDROCODONE/APAP (5/325) TAB PO ×3 (05:17→20:19)
[2018-10-14] MEDS: ZINC SULFATE 220 MG CAP GTB (08:43)
[2018-10-14] MEDS: MULTIVITAMINS/MINERALS TAB PO (08:43)
[2018-10-14] MEDS: METOPROLOL 25 MG TAB PO ×2 (08:44→20:20)
[2018-10-14] MEDS: FAMOTIDINE 20 MG TAB GTB ×2 (08:44→20:19)
[2018-10-14] MEDS: LACTOBACILLUS RHAMNOSUS CAP PO (08:44)
[2018-10-14] MEDS: RISPERIDONE 2 MG TAB GTB (08:44)
[2018-10-14] MEDS: ACETAMINOPHEN 325 MG TAB PO (08:45)
[2018-10-14] MEDS: ASPIRIN (EC) 325 MG TAB PO (08:45)
[2018-10-14] MEDS: GABAPENTIN 300 MG CAP GTB ×2 (08:45→20:19)
[2018-10-14] MEDS: ASCORBIC ACID 500 MG TAB GTB (08:45)
[2018-10-14] MEDS: VALPROIC ACID LIQUID CUP 250 MG/5 ML CUP GTB ×2 (08:46→20:19)
[2018-10-14] MEDS: DIPHENHYDRAMINE 50 MG INJ IV (08:46)
[2018-10-14] MEDS: MUPIROCIN 2% 22 GM OINT TOP ×2 (08:47→20:22)
[2018-10-14] MEDS: ENOXAPARIN 80 MG/0.8 ML SYG SC (08:49)
[2018-10-14] MEDS: CEFEPIME 1GM/50 ML (PMX) 50 ML IVPB ×2 (14:43→20:21)
[2018-10-14] MEDS: ATORVASTATIN 40 MG TAB GTB (20:19)
[2018-10-14] MEDS: HALOPERIDOL 5 MG INJ IM (21:29)
[2018-10-15] MEDS: CHLORHEXIDINE GLUCONATE 15 ML UD CUP MM ×2 (00:19→13:38)
[2018-10-15] MEDS: DIPHENHYDRAMINE 50 MG INJ IV ×2 (01:19→06:56)
[2018-10-15] MEDS: HYDROCODONE/APAP (5/325) TAB PO ×2 (03:36→10:04)
[2018-10-15] MEDS: QUETIAPINE 25 MG TAB GTB ×2 (05:42→18:12)
[2018-10-15] MEDS: CEFEPIME 1GM/50 ML (PMX) 50 ML IVPB ×2 (09:10→21:58)
[2018-10-15] MEDS: ASCORBIC ACID 500 MG TAB GTB (09:10)
[2018-10-15] MEDS: LACTOBACILLUS RHAMNOSUS CAP PO (09:10)
[2018-10-15] MEDS: VALPROIC ACID LIQUID CUP 250 MG/5 ML CUP GTB ×2 (09:10→21:55)
[2018-10-15] MEDS: FAMOTIDINE 20 MG TAB GTB ×2 (09:12→22:05)
[2018-10-15] MEDS: GABAPENTIN 300 MG CAP GTB ×2 (09:12→21:56)
[2018-10-15] MEDS: MULTIVITAMINS/MINERALS TAB PO (09:13)
[2018-10-15] MEDS: METOPROLOL 25 MG TAB PO ×2 (09:13→21:00)
[2018-10-15] MEDS: ASPIRIN (EC) 325 MG TAB PO (09:14)
[2018-10-15] MEDS: MUPIROCIN 2% 22 GM OINT TOP ×2 (09:14→21:58)
[2018-10-15] MEDS: ZINC SULFATE 220 MG CAP GTB (09:14)
[2018-10-15] MEDS: RISPERIDONE 2 MG TAB GTB (09:14)
[2018-10-15] MEDS: ENOXAPARIN 80 MG/0.8 ML SYG SC (09:15)
[2018-10-15] MEDS: LORAZEPAM 2 MG INJ IV (10:32)
[2018-10-15 11:06] LABS: ADD MAN DIFF? NO
[2018-10-15 11:09] LABS: BASOPHIL # 0.1 10^3/ul (0.0-0.1); BASOPHILS % 1.1 % (0.0-2.0); EOSINOPHILS # 0.6 10^3/ul (0.0-0.5); EOSINOPHILS % 5.9 % (0.0-7.0); HEMATOCRIT 38.4 % (42.0-52.0); HEMOGLOBIN 12.7 g/dl (14.0-18.0); LYMPHOCYTES # 1.7 10^3/ul (0.8-2.9); LYMPHOCYTES % 18.1 % (15.0-51.0); MEAN CORPUSCULAR HGB CONC 33.1 g/dl (32.0-37.0); MEAN CORPUSCULAR VOLUME 93.7 fl (82.0-101.0); MEAN PLATELET VOLUME 9.3 fl (7.4-10.4); MONOCYTE # 0.9 10^3/ul (0.3-0.9); NEUTROPHIL # 6.2 10^3/ul (1.6-7.5); PLATELET COUNT 257 10^3/UL (140-415); RED CELL DISTRIBUTION WIDTH 12.8 % (11.5-14.5)
[2018-10-15 11:09] LABS: WHITE BLOOD COUNT 9.5 10^3/ul (4.8-10.8)
[2018-10-15] MEDS: ATORVASTATIN 40 MG TAB GTB (21:56)
[2018-10-16] MEDS: CHLORHEXIDINE GLUCONATE 15 ML UD CUP MM ×3 (01:15→23:34)
[2018-10-16] MEDS: QUETIAPINE 25 MG TAB GTB ×2 (05:21→20:53)
[2018-10-16] MEDS: DIPHENHYDRAMINE 50 MG INJ IV ×2 (05:22→20:53)
[2018-10-16 05:46] LABS: ADD MAN DIFF? NO
[2018-10-16 06:10] LABS: BASOPHIL # 0.1 10^3/ul (0.0-0.1); BASOPHILS % 0.8 % (0.0-2.0); EOSINOPHILS # 0.5 10^3/ul (0.0-0.5); EOSINOPHILS % 4.6 % (0.0-7.0); HEMATOCRIT 40.1 % (42.0-52.0); HEMOGLOBIN 13.4 g/dl (14.0-18.0); LYMPHOCYTES # 2.1 10^3/ul (0.8-2.9); LYMPHOCYTES % 20.6 % (15.0-51.0); MEAN CORPUSCULAR HEMOGLOBIN 31.5 pg (29.0-33.0); MEAN CORPUSCULAR HGB CONC 33.4 g/dl (32.0-37.0); MEAN CORPUSCULAR VOLUME 94.1 fl (82.0-101.0); MEAN PLATELET VOLUME 9.3 fl (7.4-10.4); MONOCYTE # 0.8 10^3/ul (0.3-0.9); MONOCYTES % 7.6 % (0.0-11.0); NEUTROPHIL # 6.6 10^3/ul (1.6-7.5); NEUTROPHILS % 65.4 % (39.0-77.0); PLATELET COUNT 249 10^3/UL (140-415); RED BLOOD COUNT 4.26 10^6/ul (4.70-6.10); RED CELL DISTRIBUTION WIDTH 12.9 % (11.5-14.5)
[2018-10-16 06:10] LABS: WHITE BLOOD COUNT 10.1 10^3/ul (4.8-10.8)
[2018-10-16 06:53] LABS: ANION GAP 11 (5-13); BLOOD UREA NITROGEN 10 mg/dl (7-20); CALCIUM 9.2 mg/dl (8.4-10.2); CARBON DIOXIDE 29 mmol/L (21-31); CHLORIDE 102 mmol/L (97-110); CREATININE 0.65 mg/dl (0.61-1.24); Estimated GFR > 60 mL/min (>60); GLUCOSE 83 mg/dl (70-220); POTASSIUM 3.8 mmol/L (3.5-5.1); SODIUM 142 mmol/L (135-144)
[2018-10-16 09:20] LABS: ADD UMIC YES; UR ASCORBIC ACID 20 mg/dL (NEGATIVE); UR BILIRUBIN (Dip) NEGATIVE (NEGATIVE); UR BLOOD (Dip) 2+ mg/dL (NEGATIVE); UR CLARITY SLIGHTLY CLOUDY (CLEAR); UR COLOR RED (YELLOW); UR GLUCOSE (Dip) 1+ mg/dL (NEGATIVE); UR KETONES (Dip) NEGATIVE (NEGATIVE); UR LEUKOCYTE ESTERASE (Dip) NEGATIVE Leu/ul (NEGATIVE); UR MUCUS FEW /HPF (NONE SEEN); UR NITRITE (Dip) POSITIVE (NEGATIVE); UR RBC > 182 /HPF (0-5); UR SPECIFIC GRAVITY (Dip) 1.011 (1.003-1.030); UR TOTAL PROTEIN (Dip) 2+ mg/dl (NEGATIVE); UR UROBILINOGEN (Dip) NEGATIVE (NEGATIVE); UR WBC 10 /HPF (0-5)
[2018-10-16] MEDS: MUPIROCIN 2% 22 GM OINT TOP ×2 (09:33→20:54)
[2018-10-16] MEDS: CEFEPIME 1GM/50 ML (PMX) 50 ML IVPB ×2 (09:33→20:51)
[2018-10-16] MEDS: FAMOTIDINE 20 MG TAB GTB ×2 (09:36→20:53)
[2018-10-16] MEDS: ASCORBIC ACID 500 MG TAB GTB (09:36)
[2018-10-16] MEDS: RISPERIDONE 2 MG TAB GTB (09:36)
[2018-10-16] MEDS: GABAPENTIN 300 MG CAP GTB ×2 (09:36→20:53)
[2018-10-16] MEDS: LACTOBACILLUS RHAMNOSUS CAP PO (09:36)
[2018-10-16] MEDS: MULTIVITAMINS/MINERALS TAB PO (09:36)
[2018-10-16] MEDS: ASPIRIN (EC) 325 MG TAB PO (09:36)
[2018-10-16] MEDS: VALPROIC ACID LIQUID CUP 250 MG/5 ML CUP GTB ×2 (09:36→20:52)
[2018-10-16] MEDS: ZINC SULFATE 220 MG CAP GTB (09:36)
[2018-10-16] MEDS: METOPROLOL 25 MG TAB PO ×2 (09:37→20:53)
[2018-10-16] MEDS: ENOXAPARIN 80 MG/0.8 ML SYG SC (09:38)
[2018-10-16] MEDS: HYDROCODONE/APAP (5/325) TAB PO (14:12)
[2018-10-16] MEDS: ATORVASTATIN 40 MG TAB GTB (20:53)
[2018-10-17 05:56] LABS: ADD MAN DIFF? NO
[2018-10-17 06:00] LABS: BASOPHIL # 0.1 10^3/ul (0.0-0.1); BASOPHILS % 1.1 % (0.0-2.0); EOSINOPHILS # 0.4 10^3/ul (0.0-0.5); EOSINOPHILS % 5.9 % (0.0-7.0); HEMATOCRIT 39.4 % (42.0-52.0); HEMOGLOBIN 13.2 g/dl (14.0-18.0); LYMPHOCYTES # 1.5 10^3/ul (0.8-2.9); LYMPHOCYTES % 20.2 % (15.0-51.0); MEAN CORPUSCULAR HEMOGLOBIN 31.1 pg (29.0-33.0); MEAN CORPUSCULAR HGB CONC 33.5 g/dl (32.0-37.0); MEAN CORPUSCULAR VOLUME 92.7 fl (82.0-101.0); MEAN PLATELET VOLUME 9.5 fl (7.4-10.4); MONOCYTE # 0.8 10^3/ul (0.3-0.9); MONOCYTES % 10.9 % (0.0-11.0); NEUTROPHIL # 4.4 10^3/ul (1.6-7.5); NEUTROPHILS % 60.8 % (39.0-77.0); PLATELET COUNT 225 10^3/UL (140-415); RED BLOOD COUNT 4.25 10^6/ul (4.70-6.10); RED CELL DISTRIBUTION WIDTH 12.9 % (11.5-14.5)
[2018-10-17 06:00] LABS: WHITE BLOOD COUNT 7.2 10^3/ul (4.8-10.8)
[2018-10-17 06:38] LABS: ANION GAP 10 (5-13); BLOOD UREA NITROGEN 9 mg/dl (7-20); CALCIUM 9.1 mg/dl (8.4-10.2); CARBON DIOXIDE 29 mmol/L (21-31); CHLORIDE 104 mmol/L (97-110); CREATININE 0.61 mg/dl (0.61-1.24); Estimated GFR > 60 mL/min (>60); GLUCOSE 85 mg/dl (70-220); POTASSIUM 3.7 mmol/L (3.5-5.1); SODIUM 143 mmol/L (135-144)
[2018-10-17] MEDS: MUPIROCIN 2% 22 GM OINT TOP ×2 (10:50→21:56)
[2018-10-17] MEDS: CEFEPIME 1GM/50 ML (PMX) 50 ML IVPB ×2 (10:50→21:56)
[2018-10-17] MEDS: VALPROIC ACID LIQUID CUP 250 MG/5 ML CUP GTB ×2 (10:51→21:55)
[2018-10-17] MEDS: GABAPENTIN 300 MG CAP GTB ×2 (10:51→21:56)
[2018-10-17] MEDS: ZINC SULFATE 220 MG CAP GTB (10:51)
[2018-10-17] MEDS: RISPERIDONE 2 MG TAB GTB (10:51)
[2018-10-17] MEDS: ASPIRIN (EC) 325 MG TAB PO (10:51)
[2018-10-17] MEDS: LACTOBACILLUS RHAMNOSUS CAP PO (10:51)
[2018-10-17] MEDS: MULTIVITAMINS/MINERALS TAB PO (10:51)
[2018-10-17] MEDS: ASCORBIC ACID 500 MG TAB GTB (10:52)
[2018-10-17] MEDS: FAMOTIDINE 20 MG TAB GTB ×2 (10:52→21:56)
[2018-10-17] MEDS: METOPROLOL 25 MG TAB PO ×2 (10:55→21:55)
[2018-10-17] MEDS: CHLORHEXIDINE GLUCONATE 15 ML UD CUP MM (12:00)
[2018-10-17] MEDS: QUETIAPINE 25 MG TAB GTB (15:46)
[2018-10-17] MEDS: DIPHENHYDRAMINE 50 MG INJ IV (19:55)
[2018-10-17] MEDS: LORAZEPAM 2 MG INJ IV (20:20)
[2018-10-17] MEDS: ATORVASTATIN 40 MG TAB GTB (21:56)
[2018-10-18] MEDS: QUETIAPINE 25 MG TAB GTB (00:13)
[2018-10-18] MEDS: CHLORHEXIDINE GLUCONATE 15 ML UD CUP MM ×3 (01:01→23:39)
[2018-10-18 06:21] LABS: ADD MAN DIFF? NO
[2018-10-18 06:27] LABS: BASOPHIL # 0.1 10^3/ul (0.0-0.1); EOSINOPHILS # 0.6 10^3/ul (0.0-0.5); EOSINOPHILS % 7.3 % (0.0-7.0); HEMATOCRIT 38.9 % (42.0-52.0); HEMOGLOBIN 12.9 g/dl (14.0-18.0); LYMPHOCYTES # 2.2 10^3/ul (0.8-2.9); LYMPHOCYTES % 25.7 % (15.0-51.0); MEAN CORPUSCULAR HEMOGLOBIN 30.9 pg (29.0-33.0); MEAN CORPUSCULAR HGB CONC 33.2 g/dl (32.0-37.0); MEAN CORPUSCULAR VOLUME 93.3 fl (82.0-101.0); MEAN PLATELET VOLUME 9.7 fl (7.4-10.4); MONOCYTES % 11.7 % (0.0-11.0); NEUTROPHIL # 4.5 10^3/ul (1.6-7.5); NEUTROPHILS % 53.6 % (39.0-77.0); PLATELET COUNT 229 10^3/UL (140-415); RED BLOOD COUNT 4.17 10^6/ul (4.70-6.10)
[2018-10-18 06:27] LABS: WHITE BLOOD COUNT 8.4 10^3/ul (4.8-10.8)
[2018-10-18 07:03] LABS: ANION GAP 9 (5-13); BLOOD UREA NITROGEN 9 mg/dl (7-20); CALCIUM 9.2 mg/dl (8.4-10.2); CARBON DIOXIDE 31 mmol/L (21-31); CHLORIDE 104 mmol/L (97-110); Estimated GFR > 60 mL/min (>60); GLUCOSE 93 mg/dl (70-220); POTASSIUM 3.9 mmol/L (3.5-5.1); SODIUM 144 mmol/L (135-144)
[2018-10-18] MEDS: VALPROIC ACID LIQUID CUP 250 MG/5 ML CUP GTB ×2 (08:33→21:38)
[2018-10-18] MEDS: CEFEPIME 1GM/50 ML (PMX) 50 ML IVPB (08:33)
[2018-10-18] MEDS: ASPIRIN (EC) 325 MG TAB PO (08:34)
[2018-10-18] MEDS: GABAPENTIN 300 MG CAP GTB ×2 (08:34→21:38)
[2018-10-18] MEDS: ZINC SULFATE 220 MG CAP GTB (08:34)
[2018-10-18] MEDS: RISPERIDONE 2 MG TAB GTB (08:35)
[2018-10-18] MEDS: LACTOBACILLUS RHAMNOSUS CAP PO (08:35)
[2018-10-18] MEDS: FAMOTIDINE 20 MG TAB GTB ×2 (08:35→21:38)
[2018-10-18] MEDS: MULTIVITAMINS/MINERALS TAB PO (08:35)
[2018-10-18] MEDS: ASCORBIC ACID 500 MG TAB GTB (08:35)
[2018-10-18] MEDS: MUPIROCIN 2% 22 GM OINT TOP ×3 (08:36→21:39)
[2018-10-18] MEDS: METOPROLOL 25 MG TAB PO ×2 (08:36→21:39)
[2018-10-18] MEDS: LORAZEPAM 2 MG INJ IV (17:11)
[2018-10-18] MEDS: ATORVASTATIN 40 MG TAB GTB (21:38)
[2018-10-19 07:29] LABS: ADD MAN DIFF? NO
[2018-10-19 07:36] LABS: BASOPHIL # 0.1 10^3/ul (0.0-0.1); BASOPHILS % 1.1 % (0.0-2.0); EOSINOPHILS # 0.5 10^3/ul (0.0-0.5); EOSINOPHILS % 6.8 % (0.0-7.0); HEMATOCRIT 39.5 % (42.0-52.0); LYMPHOCYTES % 25.9 % (15.0-51.0); MEAN CORPUSCULAR HEMOGLOBIN 31.4 pg (29.0-33.0); MEAN CORPUSCULAR HGB CONC 32.9 g/dl (32.0-37.0); MEAN CORPUSCULAR VOLUME 95.4 fl (82.0-101.0); MEAN PLATELET VOLUME 9.8 fl (7.4-10.4); MONOCYTE # 0.7 10^3/ul (0.3-0.9); MONOCYTES % 8.5 % (0.0-11.0); NEUTROPHIL # 4.4 10^3/ul (1.6-7.5); NEUTROPHILS % 57.2 % (39.0-77.0); PLATELET COUNT 232 10^3/UL (140-415); RED BLOOD COUNT 4.14 10^6/ul (4.70-6.10); RED CELL DISTRIBUTION WIDTH 12.8 % (11.5-14.5)
[2018-10-19 07:36] LABS: WHITE BLOOD COUNT 7.6 10^3/ul (4.8-10.8)
[2018-10-19 08:07] LABS: ANION GAP 11 (5-13); BLOOD UREA NITROGEN 9 mg/dl (7-20); CALCIUM 9.2 mg/dl (8.4-10.2); CARBON DIOXIDE 29 mmol/L (21-31); CHLORIDE 103 mmol/L (97-110); Estimated GFR > 60 mL/min (>60); GLUCOSE 103 mg/dl (70-220); POTASSIUM 3.6 mmol/L (3.5-5.1); SODIUM 143 mmol/L (135-144)
[2018-10-19] MEDS: ZINC SULFATE 220 MG CAP GTB (08:41)
[2018-10-19] MEDS: RISPERIDONE 2 MG TAB GTB (08:41)
[2018-10-19] MEDS: ASCORBIC ACID 500 MG TAB GTB (08:41)
[2018-10-19] MEDS: MULTIVITAMINS/MINERALS TAB PO (08:41)
[2018-10-19] MEDS: LACTOBACILLUS RHAMNOSUS CAP PO (08:41)
[2018-10-19] MEDS: FAMOTIDINE 20 MG TAB GTB ×2 (08:41→20:25)
[2018-10-19] MEDS: ASPIRIN (EC) 325 MG TAB PO (08:41)
[2018-10-19] MEDS: METOPROLOL 25 MG TAB PO ×2 (08:42→20:27)
[2018-10-19] MEDS: GABAPENTIN 300 MG CAP GTB ×2 (08:42→20:25)
[2018-10-19] MEDS: VALPROIC ACID LIQUID CUP 250 MG/5 ML CUP GTB ×2 (08:42→20:25)
[2018-10-19] MEDS: MUPIROCIN 2% 22 GM OINT TOP ×2 (08:42→20:25)
[2018-10-19] MEDS: LORAZEPAM 2 MG INJ IV ×2 (12:01→17:59)
[2018-10-19] MEDS: CHLORHEXIDINE GLUCONATE 15 ML UD CUP MM (12:09)
[2018-10-19] MEDS: HYDROCODONE/APAP (5/325) TAB PO (15:17)
[2018-10-19] MEDS: ATORVASTATIN 40 MG TAB GTB (20:25)
[2018-10-19] MEDS: QUETIAPINE 25 MG TAB GTB (20:26)
[2018-10-19] MEDS: DIPHENHYDRAMINE 50 MG INJ IV (22:21)
[2018-10-20] MEDS: CHLORHEXIDINE GLUCONATE 15 ML UD CUP MM ×2 (00:24→14:01)
[2018-10-20 05:00] LABS: ADD MAN DIFF? NO
[2018-10-20 05:14] LABS: BASOPHIL # 0.1 10^3/ul (0.0-0.1); BASOPHILS % 1.5 % (0.0-2.0); EOSINOPHILS # 0.7 10^3/ul (0.0-0.5); EOSINOPHILS % 7.8 % (0.0-7.0); HEMATOCRIT 38.5 % (42.0-52.0); HEMOGLOBIN 12.6 g/dl (14.0-18.0); LYMPHOCYTES # 2.6 10^3/ul (0.8-2.9); LYMPHOCYTES % 31.3 % (15.0-51.0); MEAN CORPUSCULAR HEMOGLOBIN 31.6 pg (29.0-33.0); MEAN CORPUSCULAR HGB CONC 32.7 g/dl (32.0-37.0); MEAN CORPUSCULAR VOLUME 96.5 fl (82.0-101.0); MEAN PLATELET VOLUME 10.8 fl (7.4-10.4); MONOCYTE # 0.9 10^3/ul (0.3-0.9); MONOCYTES % 10.9 % (0.0-11.0); NEUTROPHILS % 47.9 % (39.0-77.0); PLATELET COUNT 209 10^3/UL (140-415); RED BLOOD COUNT 3.99 10^6/ul (4.70-6.10); RED CELL DISTRIBUTION WIDTH 12.8 % (11.5-14.5)
[2018-10-20 05:14] LABS: WHITE BLOOD COUNT 8.4 10^3/ul (4.8-10.8)
[2018-10-20 05:19] LABS: ANION GAP 9 (5-13); BLOOD UREA NITROGEN 10 mg/dl (7-20); CALCIUM 9.2 mg/dl (8.4-10.2); CARBON DIOXIDE 27 mmol/L (21-31); CHLORIDE 107 mmol/L (97-110); CREATININE 0.58 mg/dl (0.61-1.24); Estimated GFR > 60 mL/min (>60); GLUCOSE 88 mg/dl (70-220); POTASSIUM 3.8 mmol/L (3.5-5.1); SODIUM 143 mmol/L (135-144)
[2018-10-20] MEDS: MULTIVITAMINS/MINERALS TAB PO (08:38)
[2018-10-20] MEDS: ASCORBIC ACID 500 MG TAB GTB (08:38)
[2018-10-20] MEDS: VALPROIC ACID LIQUID CUP 250 MG/5 ML CUP GTB ×2 (08:38→20:40)
[2018-10-20] MEDS: ASPIRIN (EC) 325 MG TAB PO (08:38)
[2018-10-20] MEDS: LACTOBACILLUS RHAMNOSUS CAP PO (08:38)
[2018-10-20] MEDS: FAMOTIDINE 20 MG TAB GTB ×2 (08:38→20:42)
[2018-10-20] MEDS: ZINC SULFATE 220 MG CAP GTB (08:39)
[2018-10-20] MEDS: GABAPENTIN 300 MG CAP GTB ×2 (08:39→20:43)
[2018-10-20] MEDS: METOPROLOL 25 MG TAB PO ×2 (08:39→20:43)
[2018-10-20] MEDS: RISPERIDONE 2 MG TAB GTB (10:51)
[2018-10-20] MEDS: MUPIROCIN 2% 22 GM OINT TOP ×2 (14:01→20:43)
[2018-10-20] MEDS: QUETIAPINE 100 MG TAB PO (14:04)
[2018-10-20] MEDS: LORAZEPAM 2 MG INJ IV (17:23)
[2018-10-20] MEDS: DIPHENHYDRAMINE 50 MG INJ IV (19:54)
[2018-10-20] MEDS: ATORVASTATIN 40 MG TAB GTB (20:41)
[2018-10-20] MEDS: HEPARIN 5,000 UNIT/1 ML VIAL SC (20:45)
[2018-10-21] MEDS: CHLORHEXIDINE GLUCONATE 15 ML UD CUP MM ×2 (00:45→12:05)
[2018-10-21] MEDS: LORAZEPAM 2 MG INJ IV (03:46)
[2018-10-21 05:36] LABS: ADD MAN DIFF? NO
[2018-10-21 05:42] LABS: WHITE BLOOD COUNT 7.1 10^3/ul (4.8-10.8)
[2018-10-21 05:42] LABS: BASOPHIL # 0.1 10^3/ul (0.0-0.1); BASOPHILS % 1.7 % (0.0-2.0); EOSINOPHILS # 1.1 10^3/ul (0.0-0.5); EOSINOPHILS % 14.9 % (0.0-7.0); HEMATOCRIT 35.9 % (42.0-52.0); HEMOGLOBIN 11.8 g/dl (14.0-18.0); LYMPHOCYTES # 2.5 10^3/ul (0.8-2.9); LYMPHOCYTES % 35.3 % (15.0-51.0); MEAN CORPUSCULAR HEMOGLOBIN 31.1 pg (29.0-33.0); MEAN CORPUSCULAR HGB CONC 32.9 g/dl (32.0-37.0); MEAN CORPUSCULAR VOLUME 94.5 fl (82.0-101.0); MEAN PLATELET VOLUME 10.4 fl (7.4-10.4); MONOCYTE # 0.9 10^3/ul (0.3-0.9); MONOCYTES % 11.9 % (0.0-11.0); NEUTROPHIL # 2.5 10^3/ul (1.6-7.5); NEUTROPHILS % 35.5 % (39.0-77.0); PLATELET COUNT 235 10^3/UL (140-415); RED CELL DISTRIBUTION WIDTH 13.1 % (11.5-14.5)
[2018-10-21 06:25] LABS: ANION GAP 9 (5-13); BLOOD UREA NITROGEN 11 mg/dl (7-20); CARBON DIOXIDE 31 mmol/L (21-31); CHLORIDE 103 mmol/L (97-110); Estimated GFR > 60 mL/min (>60); GLUCOSE 85 mg/dl (70-220); POTASSIUM 3.6 mmol/L (3.5-5.1); SODIUM 143 mmol/L (135-144)
[2018-10-21] MEDS: LACTOBACILLUS RHAMNOSUS CAP PO (08:41)
[2018-10-21] MEDS: QUETIAPINE 100 MG TAB PO (08:41)
[2018-10-21] MEDS: GABAPENTIN 300 MG CAP GTB ×2 (08:41→20:55)
[2018-10-21] MEDS: ZINC SULFATE 220 MG CAP GTB (08:41)
[2018-10-21] MEDS: RISPERIDONE 2 MG TAB GTB (08:41)
[2018-10-21] MEDS: FAMOTIDINE 20 MG TAB GTB ×2 (08:41→20:55)
[2018-10-21] MEDS: ASPIRIN (EC) 325 MG TAB PO (08:41)
[2018-10-21] MEDS: ASCORBIC ACID 500 MG TAB GTB (08:41)
[2018-10-21] MEDS: VALPROIC ACID LIQUID CUP 250 MG/5 ML CUP GTB ×2 (08:42→21:10)
[2018-10-21] MEDS: MULTIVITAMINS/MINERALS TAB PO (08:42)
[2018-10-21] MEDS: METOPROLOL 25 MG TAB PO ×2 (08:43→20:56)
[2018-10-21] MEDS: HEPARIN 5,000 UNIT/1 ML VIAL SC ×2 (08:48→21:02)
[2018-10-21] MEDS: MUPIROCIN 2% 22 GM OINT TOP ×2 (12:04→20:56)
[2018-10-21] MEDS: ATORVASTATIN 40 MG TAB GTB (20:55)
[2018-10-22] MEDS: LORAZEPAM 2 MG INJ IV ×4 (00:43→23:58)
[2018-10-22] MEDS: METOPROLOL 25 MG TAB PO ×2 (09:00→21:11)
[2018-10-22] MEDS: ASPIRIN (EC) 325 MG TAB PO (09:17)
[2018-10-22] MEDS: LACTOBACILLUS RHAMNOSUS CAP PO (09:17)
[2018-10-22] MEDS: ASCORBIC ACID 500 MG TAB GTB (09:19)
[2018-10-22] MEDS: RISPERIDONE 2 MG TAB GTB (09:19)
[2018-10-22] MEDS: MULTIVITAMINS/MINERALS TAB PO (09:19)
[2018-10-22] MEDS: GABAPENTIN 300 MG CAP GTB ×2 (09:19→21:10)
[2018-10-22] MEDS: FAMOTIDINE 20 MG TAB GTB ×2 (09:19→21:10)
[2018-10-22] MEDS: QUETIAPINE 100 MG TAB PO (09:19)
[2018-10-22] MEDS: ZINC SULFATE 220 MG CAP GTB (09:19)
[2018-10-22] MEDS: HEPARIN 5,000 UNIT/1 ML VIAL SC ×2 (09:20→21:17)
[2018-10-22] MEDS: VALPROIC ACID LIQUID CUP 250 MG/5 ML CUP GTB ×2 (09:22→21:10)
[2018-10-22] MEDS: MUPIROCIN 2% 22 GM OINT TOP ×2 (09:40→21:21)
[2018-10-22] MEDS: CHLORHEXIDINE GLUCONATE 15 ML UD CUP MM ×2 (12:00)
[2018-10-22] MEDS: ATORVASTATIN 40 MG TAB GTB (21:10)
[2018-10-23] MEDS: CHLORHEXIDINE GLUCONATE 15 ML UD CUP MM ×3 (01:08→23:23)
[2018-10-23 05:16] LABS: ADD MAN DIFF? NO
[2018-10-23 05:24] LABS: BASOPHIL # 0.1 10^3/ul (0.0-0.1); BASOPHILS % 1.5 % (0.0-2.0); EOSINOPHILS # 0.7 10^3/ul (0.0-0.5); EOSINOPHILS % 8.3 % (0.0-7.0); HEMATOCRIT 37.5 % (42.0-52.0); HEMOGLOBIN 12.3 g/dl (14.0-18.0); LYMPHOCYTES % 37.5 % (15.0-51.0); MEAN CORPUSCULAR HEMOGLOBIN 30.8 pg (29.0-33.0); MEAN CORPUSCULAR HGB CONC 32.8 g/dl (32.0-37.0); MEAN PLATELET VOLUME 10.3 fl (7.4-10.4); MONOCYTE # 0.8 10^3/ul (0.3-0.9); NEUTROPHIL # 3.4 10^3/ul (1.6-7.5); NEUTROPHILS % 42.3 % (39.0-77.0); PLATELET COUNT 212 10^3/UL (140-415); RED BLOOD COUNT 3.99 10^6/ul (4.70-6.10); RED CELL DISTRIBUTION WIDTH 12.9 % (11.5-14.5)
[2018-10-23 06:00] LABS: ANION GAP 9 (5-13); BLOOD UREA NITROGEN 12 mg/dl (7-20); CALCIUM 9.3 mg/dl (8.4-10.2); CARBON DIOXIDE 31 mmol/L (21-31); CHLORIDE 103 mmol/L (97-110); CREATININE 0.84 mg/dl (0.61-1.24); Estimated GFR > 60 mL/min (>60); GLUCOSE 97 mg/dl (70-220); POTASSIUM 3.7 mmol/L (3.5-5.1); SODIUM 143 mmol/L (135-144)
[2018-10-23] MEDS: LORAZEPAM 2 MG INJ IV ×3 (07:03→20:53)
[2018-10-23] MEDS: METOPROLOL 25 MG TAB PO ×2 (09:00→21:35)
[2018-10-23] MEDS: VALPROIC ACID LIQUID CUP 250 MG/5 ML CUP GTB ×2 (09:28→21:34)
[2018-10-23] MEDS: ASCORBIC ACID 500 MG TAB GTB (09:28)
[2018-10-23] MEDS: MUPIROCIN 2% 22 GM OINT TOP ×2 (09:28→21:34)
[2018-10-23] MEDS: ASPIRIN (EC) 325 MG TAB PO (09:28)
[2018-10-23] MEDS: LACTOBACILLUS RHAMNOSUS CAP PO (09:29)
[2018-10-23] MEDS: GABAPENTIN 300 MG CAP GTB ×2 (09:29→21:35)
[2018-10-23] MEDS: MULTIVITAMINS/MINERALS TAB PO (09:29)
[2018-10-23] MEDS: RISPERIDONE 2 MG TAB GTB (09:30)
[2018-10-23] MEDS: QUETIAPINE 100 MG TAB PO (09:30)
[2018-10-23] MEDS: FAMOTIDINE 20 MG TAB GTB ×2 (09:30→21:35)
[2018-10-23] MEDS: ZINC SULFATE 220 MG CAP GTB (09:31)
[2018-10-23] MEDS: HEPARIN 5,000 UNIT/1 ML VIAL SC ×2 (09:34→21:37)
[2018-10-23] MEDS: ATORVASTATIN 40 MG TAB GTB (21:34)
[2018-10-24] MEDS: LORAZEPAM 2 MG INJ IV ×3 (07:35→21:11)
[2018-10-24] MEDS: HEPARIN 5,000 UNIT/1 ML VIAL SC ×2 (09:40→21:10)
[2018-10-24] MEDS: ASPIRIN 325 MG TAB PO (09:41)
[2018-10-24] MEDS: VALPROIC ACID LIQUID CUP 250 MG/5 ML CUP GTB ×2 (09:41→21:07)
[2018-10-24] MEDS: ZINC SULFATE 220 MG CAP GTB (09:41)
[2018-10-24] MEDS: FAMOTIDINE 20 MG TAB GTB ×2 (09:41→21:08)
[2018-10-24] MEDS: GABAPENTIN 300 MG CAP GTB ×2 (09:41→21:08)
[2018-10-24] MEDS: METOPROLOL 25 MG TAB PO ×2 (09:41→21:08)
[2018-10-24] MEDS: QUETIAPINE 100 MG TAB PO (09:42)
[2018-10-24] MEDS: ASCORBIC ACID 500 MG TAB GTB (09:42)
[2018-10-24] MEDS: MULTIVITAMINS/MINERALS TAB PO (09:42)
[2018-10-24] MEDS: RISPERIDONE 2 MG TAB GTB (09:42)
[2018-10-24] MEDS: LACTOBACILLUS RHAMNOSUS CAP PO (09:42)
[2018-10-24] MEDS: MUPIROCIN 2% 22 GM OINT TOP ×2 (09:42→21:10)
[2018-10-24] MEDS: CHLORHEXIDINE GLUCONATE 15 ML UD CUP MM ×2 (12:07→23:53)
[2018-10-24] MEDS: ATORVASTATIN 40 MG TAB GTB (21:07)
[2018-10-24] MEDS: QUETIAPINE 25 MG TAB PO (21:09)
[2018-10-25] MEDS: ASCORBIC ACID 500 MG TAB GTB (08:58)
[2018-10-25] MEDS: QUETIAPINE 100 MG TAB PO (08:58)
[2018-10-25] MEDS: FAMOTIDINE 20 MG TAB GTB ×2 (08:58→20:36)
[2018-10-25] MEDS: MULTIVITAMINS/MINERALS TAB PO (08:58)
[2018-10-25] MEDS: ZINC SULFATE 220 MG CAP GTB (08:58)
[2018-10-25] MEDS: ASPIRIN 325 MG TAB PO (08:59)
[2018-10-25] MEDS: VALPROIC ACID LIQUID CUP 250 MG/5 ML CUP GTB ×2 (08:59→20:37)
[2018-10-25] MEDS: GABAPENTIN 300 MG CAP GTB ×2 (08:59→20:36)
[2018-10-25] MEDS: LACTOBACILLUS RHAMNOSUS CAP PO (08:59)
[2018-10-25] MEDS: METOPROLOL 25 MG TAB PO ×2 (08:59→20:37)
[2018-10-25] MEDS: HEPARIN 5,000 UNIT/1 ML VIAL SC ×2 (09:00→20:38)
[2018-10-25] MEDS: MUPIROCIN 2% 22 GM OINT TOP ×2 (09:01→20:41)
[2018-10-25] MEDS: LORAZEPAM 2 MG INJ IV ×3 (09:40→23:07)
[2018-10-25] MEDS: CHLORHEXIDINE GLUCONATE 15 ML UD CUP MM (13:22)
[2018-10-25] MEDS: RISPERIDONE 2 MG TAB GTB (14:46)
[2018-10-25] MEDS: ATORVASTATIN 40 MG TAB GTB (20:36)
[2018-10-25] MEDS: QUETIAPINE 25 MG TAB PO (20:36)
[2018-10-26] MEDS: CHLORHEXIDINE GLUCONATE 15 ML UD CUP MM ×2 (00:39→12:05)
[2018-10-26] MEDS: MULTIVITAMINS/MINERALS TAB PO (08:45)
[2018-10-26] MEDS: GABAPENTIN 300 MG CAP GTB (08:46)
[2018-10-26] MEDS: QUETIAPINE 100 MG TAB PO (08:46)
[2018-10-26] MEDS: FAMOTIDINE 20 MG TAB GTB (08:46)
[2018-10-26] MEDS: ZINC SULFATE 220 MG CAP GTB (08:47)
[2018-10-26] MEDS: ASCORBIC ACID 500 MG TAB GTB (08:47)
[2018-10-26] MEDS: LACTOBACILLUS RHAMNOSUS CAP PO (08:47)
[2018-10-26] MEDS: ASPIRIN 325 MG TAB PO (08:47)
[2018-10-26] MEDS: METOPROLOL 25 MG TAB PO (08:48)
[2018-10-26] MEDS: VALPROIC ACID LIQUID CUP 250 MG/5 ML CUP GTB (08:48)
[2018-10-26] MEDS: HEPARIN 5,000 UNIT/1 ML VIAL SC (08:49)
[2018-10-26] MEDS: MUPIROCIN 2% 22 GM OINT TOP (08:50)
[2018-10-26] MEDS: MAGNESIUM HYDROXIDE 30ML CUP PO (12:05)
== END 2018-10-26 14:30 | DRG 207 ==
LOC: MS1 10-20 03:30 → E/R 06:35 → 6WM 16:34
PROC: B24BZZ4 Ultrasonography of Heart with Aorta, Transesophageal (ICD-10-PCS; 2018-10-12 12:30)
PROC: 5A1955Z Respiratory Ventilation, Greater than 96 Consecutive Hours (ICD-10-PCS; principal; 2018-10-12 12:50)
PROC: 0TPB70Z Removal of Drainage Device from Bladder, Via Natural or Artificial Opening (ICD-10-PCS; 2018-10-12 12:50)
PROC: 0T9B70Z Drainage of Bladder with Drainage Device, Via Natural or Artificial Opening (ICD-10-PCS; 2018-10-12 12:50)
DX: J18.9 Pneumonia, unspecified organism (principal); I21.A1 Myocardial infarction type 2; I63.49 Cerebral infarction due to embolism of other cerebral artery; G92 Toxic encephalopathy; N17.9 Acute kidney failure, unspecified; J96.10 Chronic respiratory failure, unspecified whether with hypoxia or hypercapnia; E87.2 Acidosis; E87.6 Hypokalemia; E78.5 Hyperlipidemia, unspecified; I10 Essential (primary) hypertension; I45.10 Unspecified right bundle-branch block; I69.091 Dysphagia following nontraumatic subarachnoid hemorrhage; K21.9 Gastro-esophageal reflux disease without esophagitis; R13.10 Dysphagia, unspecified; R31.9 Hematuria, unspecified; R29.721 NIHSS score 21; R40.2433 Glasgow coma scale score 3-8, at hospital admission; Z98.2 Presence of cerebrospinal fluid drainage device; Z93.0 Tracheostomy status; Z93.1 Gastrostomy status
CPT/HCPCS: 36415; 36600; 70450; 70496; 70498; 70551; 71045; 76775; 80048; 80053; 80061; 80164; 80202; 81001; 81003; 81240; 82043; 82140; 82550; 82553; 82803; 83036; 83090; 83605; 83735; 83890; 84100; 84145; 84155; 84300; 84439; 84443; 84484; 85025; 85240; 85300; 85302; 85305; 85378; 85610; 85613; 85651; 85730; 86146; 86147; 86592; 86703; 87040-91; 87070; 87081; 87086; 92526; 92610; 93005; 93306; 93312; 94002; 94003; 94640; 94664; 94772; 96365; 96366; 96367; 96372; 96375; 96376; 97161; 97166; 99285-25

== ENCOUNTER 2018-10-30 09:13 | Emergency (ER) | payer MEDICAID, OTHER ==
[2018-10-30 10:49] LABS: ADD MAN DIFF? NO
[2018-10-30 10:51] LABS: WHITE BLOOD COUNT 10.1 10^3/ul (4.8-10.8)
[2018-10-30 10:51] LABS: BASOPHIL # 0.1 10^3/ul (0.0-0.1); BASOPHILS % 0.6 % (0.0-2.0); EOSINOPHILS # 0.1 10^3/ul (0.0-0.5); EOSINOPHILS % 0.9 % (0.0-7.0); HEMATOCRIT 36.4 % (42.0-52.0); HEMOGLOBIN 12.1 g/dl (14.0-18.0); LYMPHOCYTES # 1.7 10^3/ul (0.8-2.9); LYMPHOCYTES % 16.7 % (15.0-51.0); MEAN CORPUSCULAR HEMOGLOBIN 31.4 pg (29.0-33.0); MEAN CORPUSCULAR HGB CONC 33.2 g/dl (32.0-37.0); MEAN CORPUSCULAR VOLUME 94.5 fl (82.0-101.0); MEAN PLATELET VOLUME 10.9 fl (7.4-10.4); MONOCYTES % 9.8 % (0.0-11.0); NEUTROPHIL # 7.2 10^3/ul (1.6-7.5); NEUTROPHILS % 71.4 % (39.0-77.0); PLATELET COUNT 171 10^3/UL (140-415); RED BLOOD COUNT 3.85 10^6/ul (4.70-6.10); RED CELL DISTRIBUTION WIDTH 12.9 % (11.5-14.5)
[2018-10-30 11:10] LABS: ANION GAP 9 (5-13); BLOOD UREA NITROGEN 17 mg/dl (7-20); CALCIUM 9.4 mg/dl (8.4-10.2); CARBON DIOXIDE 30 mmol/L (21-31); CHLORIDE 103 mmol/L (97-110); CREATININE 1.02 mg/dl (0.61-1.24); Estimated GFR > 60 mL/min (>60); GLUCOSE 91 mg/dl (70-220); POTASSIUM 3.8 mmol/L (3.5-5.1); SODIUM 142 mmol/L (135-144)
== END 2018-10-30 14:23 | disposition home or self-care (01) ==
LOC: E/R 14:23
DX: G40.909 Epilepsy, unspecified, not intractable, without status epilepticus (principal); D64.9 Anemia, unspecified; I10 Essential (primary) hypertension; R40.2142 Coma scale, eyes open, spontaneous, at arrival to emergency department; R40.2252 Coma scale, best verbal response, oriented, at arrival to emergency department; R40.2362 Coma scale, best motor response, obeys commands, at arrival to emergency department; Z86.73 Personal history of transient ischemic attack (TIA), and cerebral infarction without residual deficits; Z87.891 Personal history of nicotine dependence
CPT/HCPCS: 70450; 80048; 85025; 99284-25